=== PATIENT | female | born 1945 | race Caucasian/White ===

== ENCOUNTER 2024-10-18 13:37 | Outpatient (CLI) | payer MEDICARE, OTHER ==
[~2024-10-18 13:37] MED LIST: ALBU8HFA PO; BECL8.7A7 INH; BUSP5TAB3 PO; CARI350T PO; DIAZ5TAB22 PO; EPIN0.3P3 IM; ESTR0.753 PO; HYDR-3972 PO; IMO2C PO; LEVO100T46 PO; PANT40TA39 PO; PROP10TA10 PO; SUMA25TA35 PO; TRAM50TA2 PO
--- NOTE | 2024-10-18 16:08 | RADIOLOGY REPORT ---
EXAM: CT CT LOWER EXTREMITY HISTORY: PAIN IN L KNEE, PRESENCE OF LEFT ARTIFICIAL KNEE JOINT COMPARISON: None TECHNIQUE: Noncontrast axial CT images of the left knee were performed. Sagittal and coronal reformat ivette images were obtained. This CT exam was performed using one or more of the following dose reductio n techniques: Automated exposure control, adjustment of the mA and/or kv according to patient size, o r the use of iterative reconstruction techniques. Radiation Dose Information: CTDI volume is 16.76 mG y. Dose-length product is 537.51 mGy*cm FINDINGS/IMPRESSION: 1. Left total knee arthroplasty without evidence of periprosthetic fracture or loosening. There is stokes btle endosteal scalloping and cortical remodeling involving the anteromedial margin of the proximal t ibia adjacent to the distal aspect of the tibial component (image 90, series 3; image 45, series 602) , of uncertain clinical relevance. 2. Small left knee effusion. 3. Extensive atherosclerotic calcifications. Consider follow-up CTA with runoff for better character ization.
== END 2024-10-18 23:59 | disposition home or self-care (01) ==
LOC: 64 CT 13:37
PROVIDERS: ATTEND Pediatrics Sports Medicine
DX: M25.462 Effusion, left knee (principal); I70.8 Atherosclerosis of other arteries; M25.562 Pain in left knee; Z96.652 Presence of left artificial knee joint
CPT/HCPCS: 73700